=== PATIENT | male | born 1940 | race Caucasian/White ===

== ENCOUNTER 2022-07-12 19:39 | Emergency (ER) | payer MEDICARE ==
--- NOTE | 2022-07-12 21:04 | ED ---
General Adult HPI - General Chief complaint: Abdominal Pain Stated complaint: recheck Time Seen by Provider: 07/12/22 20:42 Source: patient, family (), RN notes reviewed Mode of arrival: ambulatory Limitations: no limitations - History of Present Illness Initial comments: Patient is an 82-year-old male presenting to the emergency room complaints of right upper quadrant pain and pain in the right lower rib region he reports that movement and deep inspiration makes the pain worse. He states that the pain has been ongoing for 5-6 days. He states that at the beginning of his symptoms he was having dry heaves without any vomiting. He denies any recent dry heaves. He does report occasional nausea but none at this time. He denies any left-sided abdominal pain, diarrhea, changes in stool consistency, unintentional weight changes, flank pain, hematuria, dysuria, urinary frequency or hesitation, fevers or chills. He reports chronic shortness of breath which she fills unchanged since symptoms started however his is concerned r egarding increased shortness of breath since symptoms began. He was evaluated by [facility] and on the neck advised him to report to the emergency room for further evaluation and treatment. His reports that they were concerned regarding a clot but did not divulge any further information. He denies any chest pain or as stated above changes in baseline dyspnea. He has a past medical history significant for A. fib, hypertension, hyperlipidemia, SC, COPD and previous cholecystectomy. He is on warfarin for his history of atrial fibrillation and reports that his last INR which is checked monthly by his barrel and receiver aligner was therapeutic. - Related Data Home Medications Medication Instructions Recorded Confirmed Aspirin EC [Ecotrin Low Dose] 81 mg PO DAILY 07/12/22 07/12/22 Atorvastatin [Lipitor] 20 mg PO DIRECTED 07/12/22 07/12/22 Cholecalciferol [Vitamin D3 (25 50 mcg PO DAILY 07/12/22 07/12/22 Mcg = 1000 Iu)] Digoxin [Lanoxin] 125 mcg PO DIRECTED 07/12/22 07/12/22 Metoprolol Tartrate [Lopressor] 50 mg PO DIRECTED 07/12/22 07/12/22 Omeprazole [PriLOSEC] 20 mg PO DIRECTED 07/12/22 07/12/22 Warfarin Sodium 1.25 mg PO MOWEFR@2100 07/12/22 07/12/22 Warfarin [Coumadin] 2.5 mg PO BART@2100 07/12/22 07/12/22 lisinopriL [Zestril] 10 mg PO DAILY 07/12/22 07/12/22 Previous Rx's Medication Instructions Recorded Levofloxacin [Levaquin] 500 mg PO DAILY 6 Days #6 tab 07/13/22 Allergies Allergy/AdvReac Type Severity Reaction Status Date / Time amoxicillin [From Augmentin] Allergy Unknown Verified 07/12/22 22:15 clavulanic acid Allergy Unknown Verified 07/12/22 22:15 [From Augmentin] Review of Systems ROS Statement: Those systems with pertinent positive or pertinent negative responses have been documented in the HPI. ROS Other: All systems not noted in ROS Statement are negative. Past Medical History Past Medical History: Atrial Fibrillation, COPD, Hyperlipidemia, Hypertension, Myocardial Infarction (SC) History of Any Multi-Drug Resistant Organisms: None Reported Past Surgical History: Cholecystectomy, Coronary Bypass/CABG, Heart Catheterization With Stent, Pacemaker Past Psychological History: No Psychological Hx Reported Smoking Status: Former smoker Past Alcohol Use History: None Reported Past Drug Use History: None Reported General Exam - General Exam Comments Initial Comments: GENERAL: No acute distress, well developed, well nourished. HEENT: Normocephalic, atraumatic. Pupils equal, round, reactive to light. Moist mucous membranes. LUNGS: No respiratory distress. Lung sounds diminished otherwise clear to auscultation, no adventitious sounds, no use of accessory muscles. HEART: Regular rate and rhythm systolic murmur without diastolic murmur, rub, or gallop. ABDOMEN: Normal bowel sounds. Soft, non-distended. Right upper quadrant tenderness. No rebound tenderness or guarding. BACK: Normal inspection. EXTREMITIES: Bilateral +1 lower extremity edema. No tenderness. Moves all extremities. NEUROLOGIC: Alert & oriented x 3. CN II-XII grossly intact. PSYCHIATRIC: Normal affect and behavior. DERMATOLOGIC: Skin intact, without rashes or lesions noted. Limitations: no limitations Course Vital Signs 07/12/22 19:48 Temperature 98.2 F Pulse Rate 88 Respiratory 18 Rate Blood Pressure 159/88 O2 Sat by Pulse 98 Oximetry Medical Decision Making - Medical Decision Making Was pt. sent in by a medical professional or institution (, PA, PERSONAL LINES APPRAISER, urgent care, hospital, or shelter...) When possible be specific @ -No Did you speak to anyone other than the patient for history (EMS, parent, family, police, friend...)? What history was obtained from this source @ -No Did you review nursing and triage notes (agree or disagree)? Why? @ -I reviewed and agree with nursing and triage notes Were old charts reviewed (outside hosp., previous admission, EMS record, old EKG, old radiological studies, urgent care reports/EKG's, shelter records)? Report findings @ -No old charts were reviewed Differential Diagnosis (chest pain, altered mental status, abdominal pain women, abdominal pain men, vaginal bleeding, weakness, fever, dyspnea, syncope, headache, dizziness, GI bleed, back pain, seizure, CVA, palpatations, mental health, musculoskeletal)? @ -Differential Abdominal Pain Men: Appendicitis, cholecystitis, diverticulosis, ischemic bowel, pancreatitis, hepatitis, UTI, gastroenteritis, AAA, incarcerated hernia, bowel obstruction, constipation, inflammatory bowel, hepatitis, peptic ulcer disease, splenic infarction, perforated viscus, testicular torsion, this is not meant to be an all-inclusive list EKG interpreted by me (3pts min.). @ -EKG demonstrates electronically paced rhythm with right bundle branch block, ventricular rate 85 bpm, UT interval 224 ms, QRS duration 129 ms, QT/QTC 350/392 ms, PRT axis -84, 95, 38 X-rays interpreted by me (1pt min.). @ -None done CT interpreted by me (1pt min.). @ -CT chest angio: No pulmonary emboli. Redemonstration of right middle lobe pneumonia and small right pleural effusion. CT abdomen and pelvis with contrast: Right middle lobe consolidation with small pleural effusion. No acute intra-abdominal process. No evidence of obstruction, bowel dilatation, or free air in the abdomen. U/S interpreted by me (1pt. min.). @ -None done What testing was considered but not performed or refused? (CT, X-rays, U/S, labs)? Why? @ -None What meds were considered but not given or refused? Why? @ -None Did you discuss the management of the patient with other professionals (professionals i.e. , PA, PERSONAL [employer]ES APPRAISER, lab, RT, psych nurse, social service director, prospecting driller, teacher, aoc director combat plans officer, case management specialist)? Give summary @ -No Was smoking cessation discussed for >3mins.? @ -No Was critical care preformed (if so, how long)? @ -No Were there social determinants of health that impacted care today? How? (Homelessness, low income, unemployed, alcoholism, drug addiction, transportation, low edu. Level, literacy, decrease access to med. care, detention, r ehab)? @ -No Was there de-escalation of care discussed even if they declined (Discuss DNR or withdrawal of care, Hospice)? DNR status @ -No What co-morbidities impacted this encounter? (DM, HTN, Smoking, COPD, CAD, Cancer, CVA, ARF, Chemo, Hep., AIDS, mental health diagnosis, sleep apnea, morbid obesity)? @ -Atrial fibrillation on warfarin Was patient admitted / discharged? Hospital course, mention meds given and route, prescriptions, significant lab abnormalities, going to OR and other pertinent info. @ -82-year-old male presenting to the emergency room for further evaluation of right upper quadrant/right lower rib pain ongoing for approximately 5 days with initial dry heaves no further episodes of dry heaves. Conflicting information regarding workup at urgent care by spouse. Will start workup for abdominal pain with CBC, CMP, amylase, like lipase, lactic acid, troponin, coags and urinalysis; in the setting of concern regarding clot per will also check d-dimer. Will await laboratory studies to order diagnostic imaging. No indication for medications at this time. CBC demonstrates low RBC 4.29 otherwise no abnormalities coags demonstrate subtherapeutic INR at 1.7 d-dimer elevated 1.66 CMP reveals BUN elevated at 30 sodium level 134, potassium normal, bilirubin slightly elevated 1.5, ALT slightly elevated 54, AST normal ,alk phosphate normal, troponin negative, amylase and lipase, normal urinalysis with moderate amount of blood causing contamination of results with +1 protein large leukocyte esterase urine RBCs and urine WBCs elevated with rare mucus and rare bacteria. Will proceed with CT angios chest in the setting of elevated d-dimer along with CT of chest and abdomen. CT abdomen and pelvis negative for acute abdominal process. CT angios negative for pulmonary emboli. CT findings consistent with right middle lobe pneumonia with small pleural effusion. In the setting of no leukocytosis, hypoxia or fevers patient is stable for discharge home on oral antibiotic therapy however very strict return parameters to the emergency room discussed at length with patient and spouse. Will give initial dose of oral antibiotic therapy of Levaquin. Given comorbidities and amoxicillin ALLERGY will utilize Levaquin to treat pneumonia. Patient educated regarding potential interaction with warfarin and advised to monitor for signs and symptoms of bleeding and repeat INR level upon completion of medication course. Encouraged cough and deep breathing exercises. Advise follow-up with primary care provider. Will discharge home on oral antibiotic therapy for treatment of right middle lobe pneumonia advising follow-up with primary care provider. Undiagnosed new problem with uncertain prognosis? @ -No Drug Therapy requiring intensive monitoring for toxicity (Heparin, Nitro, Insulin, Cardizem)? @ -No Were any procedures done? @ -No Diagnosis/symptom? @ -Right middle lobe pneumonia with small right pleural effusion Acute, or Chronic, or Acute on Chronic? @ -Acute Uncomplicated (without systemic symptoms) or Complicated (systemic symptoms)? @ -Uncomplicated Side effects of treatment? @ -No Exacerbation, Progression, or Severe Exacerbation? @ -No Poses a threat to life or bodily function? How? (Chest pain, USA, SC, pneumonia, PE, COPD, DKA, ARF, appy, cholecystitis, CVA, Diverticulitis, Homicidal, Suicidal, threat to staff... and all critical care pts) @ -No. Case discussed with Dr. Pillai. - Lab Data Result diagrams: 07/12/22 21:05 07/12/22 21:05 Lab Results 07/12/22 07/12/22 07/12/22 Range/Units 21:05 21:05 21:05 WBC 7.4 (3.8-10.6) k/uL RBC 4.29 L (4.30-5.90) m/uL Hgb 13.0 (13.0-17.5) gm/dL Hct 39.7 (39.0-53.0) % MCV 92.4 (80.0-100.0) fL MCH 30.3 (25.0-35.0) pg MCHC 32.8 (31.0-37.0) g/dL RDW 13.6 (11.5-15.5) % Plt Count 216 (150-450) k/uL MPV 9.2 Neutrophils % 68 % Lymphocytes % 17 % Monocytes % 9 % Eosinophils % 3 % Basophils % 0 % Neutrophils # 5.0 (1.3-7.7) k/uL Lymphocytes # 1.3 (1.0-4.8) k/uL Monocytes # 0.7 (0-1.0) k/uL Eosinophils # 0.2 (0-0.7) k/uL Basophils # 0.0 (0-0.2) k/uL PT 17.1 H (9.0-12.0) sec INR 1.7 H (<1.2) APTT 32.2 H (22.0-30.0) sec D-Dimer 1.66 H (<0.60) mg/L FEU Sodium (137-145) mmol/L Potassium (3.5-5.1) mmol/L Chloride (98-107) mmol/L Carbon Dioxide (22-30) mmol/L Anion Gap mmol/L BUN (9-20) mg/dL Creatinine (0.66-1.25) mg/dL Est GFR (CKD-EPI)AfAm (>60 ml/min/1.73 sqM) Est GFR (CKD-EPI)NonAf (>60 ml/min/1.73 sqM) Glucose (74-99) mg/dL Plasma Lactic Acid Jhon (0.7-2.0) mmol/L Calcium (8.4-10.2) mg/dL Total Bilirubin (0.2-1.3) mg/dL AST (17-59) U/L ALT (4-49) U/L Alkaline Phosphatase (38-126) U/L Troponin I (0.000-0.034) ng/mL Total Protein (6.3-8.2) g/dL Albumin (3.5-5.0) g/dL Amylase (30-110) U/L Lipase (23-300) U/L Urine Color Yellow Urine Appearance Cloudy (Clear) Urine pH 5.0 (5.0-8.0) Ur Specific [place] 1.020 (1.001-1.035) Urine Protein 1+ H (Negative) Urine Glucose (UA) Negative (Negative) Urine Ketones Negative (Negative) Urine Blood Moderate H (Negative) Urine Nitrite Negative (Negative) Urine Bilirubin Negative (Negative) Urine Urobilinogen 2.0 (<2.0) mg/dL Ur Leukocyte Esterase Large H (Negative) Urine RBC 10 H (0-5) /hpf Urine WBC 43 H (0-5) /hpf Ur Squamous Epith Cells 1 (0-4) /hpf Urine Bacteria Rare H (None) /hpf Urine Mucus Rare H (None) /hpf 07/12/22 07/12/22 07/12/22 Range/Units 21:05 21:05 21:05 WBC (3.8-10.6) k/uL RBC (4.30-5.90) m/uL Hgb (13.0-17.5) gm/dL Hct (39.0-53.0) % MCV (80.0-100.0) fL MCH (25.0-35.0) pg MCHC (31.0-37.0) g/dL RDW (11.5-15.5) % Plt Count (150-450) k/uL MPV Neutrophils % % Lymphocytes % % Monocytes % % Eosinophils % % Basophils % % Neutrophils # (1.3-7.7) k/uL Lymphocytes # (1.0-4.8) k/uL Monocytes # (0-1.0) k/uL Eosinophils # (0-0.7) k/uL Basophils # (0-0.2) k/uL PT (9.0-12.0) sec INR (<1.2) APTT (22.0-30.0) sec D-Dimer (<0.60) mg/L FEU Sodium 134 L (137-145) mmol/L Potassium 4.4 (3.5-5.1) mmol/L Chloride 101 (98-107) mmol/L Carbon Dioxide 30 (22-30) mmol/L Anion Gap 3 mmol/L BUN 30 H (9-20) mg/dL Creatinine 0.72 (0.66-1.25) mg/dL Est GFR (CKD-EPI)AfAm >90 (>60 ml/min/1.73 sqM) Est GFR (CKD-EPI)NonAf 86 (>60 ml/min/1.73 sqM) Glucose 88 (74-99) mg/dL Plasma Lactic Acid Jhon 0.7 (0.7-2.0) mmol/L Calcium 8.3 L (8.4-10.2) mg/dL Total Bilirubin 1.5 H (0.2-1.3) mg/dL AST 51 (17-59) U/L ALT 54 H (4-49) U/L Alkaline Phosphatase 84 (38-126) U/L Troponin I 0.016 (0.000-0.034) ng/mL Total Protein 5.9 L (6.3-8.2) g/dL Albumin 3.2 L (3.5-5.0) g/dL Amylase 66 (30-110) U/L Lipase 285 (23-300) U/L Urine Color Urine Appearance (Clear) Urine pH (5.0-8.0) Ur Specific [place] (1.001-1.035) Urine Protein (Negative) Urine Glucose (UA) (Negative) Urine Ketones (Negative) Urine Blood (Negative) Urine Nitrite (Negative) Urine Bilirubin (Negative) Urine Urobilinogen (<2.0) mg/dL Ur Leukocyte Esterase (Negative) Urine RBC (0-5) /hpf Urine WBC (0-5) /hpf Ur Squamous Epith Cells (0-4) /hpf Urine Bacteria (None) /hpf Urine Mucus (None) /hpf Disposition Clinical Impression: Right middle lobe pneumonia, Pleural effusion, right Disposition: HOME SELF-CARE Condition: Stable Instructions (If sedation given, give patient instructions): Community Acquired Pneumonia (ED) Additional Instructions: Complete course of antibiotic therapy as prescribed. Cough and deep breathing exercises encouraged. Please follow-up with your primary care provider. Please have your INR for your Coumadin level rechecked after completion of antibiotic therapy. Please return to the Emergency Department if symptoms worsen or any other concerns. Prescriptions: Levofloxacin [Levaquin] 500 mg PO DAILY 6 Days #6 tab Is patient prescribed a controlled substance at d/c from ED?: No Referrals: Henry Oliver DO [Doctor of Osteopathic Medicine] - 1-2 days Time of Disposition: 00:22
[2022-07-12 21:35] VITALS: BP 159/88; PULSE 88; RESP 18; TEMP 98.2
[2022-07-12 21:35] LABS: Basophils % (A) 0 %; Eosinophils # (A) 0.2 k/uL (0-0.7); Eosinophils % (A) 3 %; HCT 39.7 % (39.0-53.0); Lymphocytes # (A) 1.3 k/uL (1.0-4.8); Lymphocytes % (A) 17 %; MCH 30.3 pg (25.0-35.0); MCHC 32.8 g/dL (31.0-37.0); MCV 92.4 fL (80.0-100.0); Mean Platelet Volume 9.2; Monocytes # (A) 0.7 k/uL (0-1.0); Monocytes % (A) 9 %; Neutrophils % (A) 68 %; Platelet Count 216 k/uL (150-450); RBC 4.29 m/uL (4.30-5.90); RDW 13.6 % (11.5-15.5); WBC 7.4 k/uL (3.8-10.6)
[2022-07-12 21:48] LABS: INR 1.7 (<1.2); Partial Thromboplastin Time 32.2 sec (22.0-30.0); Prothrombin Time 17.1 sec (9.0-12.0)
[2022-07-12 21:57] LABS: Appearance,Urine Cloudy (Clear); Bacteria,Urine Rare /hpf; Bilirubin,Urine Negative (Negative); Blood,Urine Moderate (Negative); Color,Urine Yellow; Glucose,Urine (UA) Negative (Negative); Ketones,Urine Negative (Negative); Leukocyte Esterase,Urine Large (Negative); Mucus,Urine Rare /hpf; Nitrite,Urine Negative (Negative); Protein,Urine 1+ (Negative); RBC,Urine 10 /hpf (0-5); Squamous Epithelial Cell,Urine 1 /hpf (0-4); WBC,Urine 43 /hpf (0-5)
[2022-07-12 22:00] LABS: ALT 54 U/L (4-49); AST 51 U/L (17-59); African American GFR (CKD) >90 (>60 ml/min/1.73 sqM); Albumin 3.2 g/dL (3.5-5.0); Alkaline Phosphatase 84 U/L (38-126); Amylase 66 U/L (30-110); Anion Gap 3 mmol/L; Blood Urea Nitrogen 30 mg/dL (9-20); Calcium 8.3 mg/dL (8.4-10.2); Carbon Dioxide 30 mmol/L (22-30); Chloride 101 mmol/L (98-107); Glucose 88 mg/dL (74-99); Lipase 285 U/L (23-300); Non-African American GFR(CKD) 86 (>60 ml/min/1.73 sqM); Potassium 4.4 mmol/L (3.5-5.1); Sodium 134 mmol/L (137-145); Total Bilirubin 1.5 mg/dL (0.2-1.3); Total Protein 5.9 g/dL (6.3-8.2)
--- NOTE | 2022-07-13 | CT ---
EXAM: CT Angiography Chest With Intravenous Contrast CLINICAL HISTORY: CT Reason: RUQ pain, dyspnea elevated d dimer TECHNIQUE: Axial computed tomographic angiography images of the chest with intravenous contrast. CTDI is 21 mGy and DLP is 282.8 mGy-cm. This CT exam was performed using one or more of the following dose reduction techniques: automated exposure control, adjustment of the mA and/or kV according to patient size, and/or use of iterative reconstruction technique. MIP reconstructed images were created and reviewed. COMPARISON: No relevant prior studies available. FINDINGS: Pulmonary arteries: The pulmonary arterial tree is well opacified with contrast. No pulmonary embolism is identified. Aorta: The thoracic aorta is mildly calcified but nondilated. There is no aneurysm or dissection. 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 Lungs: There is an approximately 8 cm area of consolidation in the right middle lobe as well as scattered patchy infiltrates in the right upper and lower lobes consistent with pneumonia. There are mild emphysematous changes in the left lung. Pleural space: There is a small right pleural effusion measuring up to 2.5 cm. No pneumothorax. Heart: Previous CABG. There is severe coronary calcification and moderate cardiomegaly with pacing device in place. No pericardial effusion. No evidence of RV dysfunction. Bones/joints: There is ankylosis of the thoracic spine. No acute fracture is identified. No dislocation. Soft tissues: Unremarkable. Lymph nodes: Unremarkable. No enlarged lymph nodes. IMPRESSION: 1. There is an approximately 8 cm area of consolidation in the right middle lobe as well as scattered patchy infiltrates in the right upper and lower lobes consistent with pneumonia. Mild underlying emphysema. 2. The pulmonary arterial tree is well opacified with contrast. No pulmonary embolism is identified. 3. The thoracic aorta is mildly calcified but nondilated. There is no aneurysm or dissection. 4. There is a small right pleural effusion measuring up to 2.5 cm.
--- NOTE | 2022-07-13 00:02 | CT ---
EXAM: CT Abdomen and Pelvis With Intravenous Contrast CLINICAL HISTORY: CT Reason: RUQ pain TECHNIQUE: Axial computed tomography images of the abdomen and pelvis with intravenous contrast. CTDI is 16 mGy and DLP is 726.3 mGy-cm. This CT exam was performed using one or more of the following dose reduction techniques: automated exposure control, adjustment of the mA and/or kV according to patient size, and/or use of iterative reconstruction technique. COMPARISON: No relevant prior studies available. FINDINGS: Lung bases: Right middle lobe pneumonia and small right pleural effusion. ABDOMEN: Liver: Unremarkable. No mass. Gallbladder and bile ducts: Abuse cholecystectomy. No biliary duct dilation is seen. Pancreas: Unremarkable. No mass. No ductal dilation. Spleen: Unremarkable. No splenomegaly. Adrenals: Unremarkable. No mass. Kidneys and ureters: Unremarkable. No solid mass. No hydronephrosis. Stomach and bowel: Unremarkable. No obstruction. No mucosal thickening. PELVIS: Appendix: The appendix is normal. Bowel loops are nondilated. No acute focal inflammatory process is seen involving the bowel. There is a trace amount of free fluid in the pelvis. Bladder: Unremarkable. No mass. Reproductive: Partial visualization of large hydrocele measuring approximate 8.5 cm. ABDOMEN and PELVIS: Intraperitoneal space: See above. Bones/joints: Mild to moderate degenerative changes throughout the spine. No acute fracture or subluxation is seen. Soft tissues: Unremarkable. Vasculature: Severe calcification and mild ectasia of the inferior abdominal aorta measuring up to 2.6 cm. No abdominal aortic aneurysm. Lymph nodes: Unremarkable. No enlarged lymph nodes. IMPRESSION: 1. Right middle lobe pneumonia and small right pleural effusion. 2. The appendix is normal. Bowel loops are nondilated. No acute focal inflammatory process is seen involving the bowel. There is a trace amount of free fluid in the pelvis.
[2022-07-13] MEDS ORDERED: LEVOFLOXACIN 500 MG TAB PO STA (00:19)
== END 2022-07-13 00:42 | disposition home or self-care (01) ==
LOC: EC 19:39 → SUPCPDRO 19:39 → EC 07-13 00:42
DX: J18.9 Pneumonia, unspecified organism (principal); J90 Pleural effusion, not elsewhere classified; I10 Essential (primary) hypertension; I48.91 Unspecified atrial fibrillation; I25.2 Old myocardial infarction; J44.9 Chronic obstructive pulmonary disease, unspecified; E78.5 Hyperlipidemia, unspecified; Z79.01 Long term (current) use of anticoagulants; Z79.82 Long term (current) use of aspirin; Z79.899 Other long term (current) drug therapy; Z88.0 Allergy status to penicillin; Z88.1 Allergy status to other antibiotic agents; Z90.49 Acquired absence of other specified parts of digestive tract; Z95.5 Presence of coronary angioplasty implant and graft; Z87.891 Personal history of nicotine dependence
CPT/HCPCS: 36415; 93005; 85379; 80053; 82150; 83605; 83690; 84484; 85025; 85610; 85730; 81001; 71275; 74177; 99284; Q9967

== ENCOUNTER 2023-06-26 08:52 | Day surgery (SDC) | payer MEDICARE ==
[2023-06-24 09:41] VITALS: BMI 20.3
[~2023-06-26 08:52] MED LIST: ceFAZolin 1 GM in SODIUM CHLORIDE 0.9% IRRIG BTL 250 ML IRRIGATION PRN
[2023-06-26] MEDS: SODIUM CHLORIDE 0.9% 1,000 ML IV SCH (09:21)
[2023-06-26] MEDS ORDERED: LIDOCAINE 1% INJ 10MG/ML (20 ML MDV) ONE (09:23)
[2023-06-26] MEDS ORDERED: fentaNYL (PF) 50 MCG/ML 2 ML AMP ONE (09:23)
[2023-06-26 09:34] LABS: INR 1.5 (<1.2); Prothrombin Time 15.1 sec (10.0-12.5)
[2023-06-26 09:42] VITALS: RESP 18; TEMP 97.9
[2023-06-26] MEDS: fentaNYL (PF) 50 MCG/1 ML VIAL IVP ONE ×2 (10:52→10:59)
[2023-06-26] MEDS: MIDAZOLAM 2 MG/2 ML VIAL IVP ONE ×2 (10:52→10:57)
[2023-06-26] MEDS: ceFAZolin 1,000 MG VIAL IVPB ONE (10:54)
[2023-06-26] MEDS: LIDOCAINE 2% (PF) 20 MG/ML 5 ML VIAL SQ ONE (10:56)
--- NOTE | 2023-06-26 11:29 | P.PCN ---
Description of Procedure: CARDIOLOGY PROCEDURE NOTE Land Reclamation Specialist: Dr. Tim Pollard Procedure performed: Dual chamber permanent pacemaker generator change Site: Left subclavian Indications: Sick Sinus Syndrome, CASTILLO Complications: None Blood Loss: Minimal Description of Procedure: After the risks, benefits, and alternatives of the above-mentioned procedure was explained in detail with the patient, informed consent was obtained. The patient was taken to the cardiac catheterization suite where the left subclavian area was sterily prepped and draped in the usual fashion. Patient was given IV Versed and fentanyl for sedation. The skin over the existing pulse generator was infiltrated with lidocaine. An incision was made in the skin and was deepened until the pectoral fascia was exposed. Hemostasis was obtained. The existing pulse generator was pulled out of the pocket. The leads were disconnected and were checked for thresholds. The existing leads were then inserted into the appropriate position into the new generator. They were then secured with the setscrew provided. The leads and generator were inserted into the pocket with the leads posterior. The subcutaneous tissue was approximated utilizing #2.0 and 3.0 vicryl in an interrupted stitch fashion. The dermal layer was approximated utilizing #4.0 vicryl. The area was cleansed with sterile saline and dried. A sterile 4x4 dressing was applied and the patient was transferred to the post catheterization holding area in stable and satisfactory condition. The patient tolerated the procedure well. Generator Data Digital Art Director: [employer] Brand: [id number] [place] XT DR [facility] Model #: W1DR01 Serial#: [id number] Right Atrial Bipolar Lead Data: Type: Active fixation lead Digital Art Director: [employer] Model#: 5076 Serial Number: [id number] Right Ventricular Bipolar Lead Data: Type: Active fixation lead Digital Art Director: [employer] Model #: 5076 Serial #: [id number] Stimulation Thresholds: Right atrial bipolar lead pacing and sensing thresholds Voltage: 0.75V Impedance: 456 ohms P-wave sensin.5 mV Right Ventricular bipolar lead pacing and sensing thresholds Pulse Width: 0.4ms Voltage: 1.0 volts Impedance: 475 ohms R-wave sensin mV Parameter Setting: Pacing mode is AAIR<=>DDDR Lower rate 60 bpm Upper rate 120 bpm Impressions: 1. Successful generator change of a dual chamber permanent pacemaker in the left pectoral site. Plan: 1. Routine post procedure care will be instituted as well as outpatient follow- up surveillance.
[2023-06-26] MEDS ORDERED: ACETAMINOPHEN TAB 325 MG TAB PO PRN (11:41)
[2023-06-26 13:25] VITALS: PULSE 63
--- NOTE | 2023-06-26 13:25 | XR ---
EXAMINATION TYPE: XR chest 1V portable DATE OF EXAM: 06/26/2023 COMPARISON: 08/06/2022, 07/24/2022 HISTORY: Lead placement check TECHNIQUE: Single frontal view of the chest is obtained. FINDINGS: There is no focal air space opacity, pleural effusion, or pneumothorax seen. The cardiac silhouette size is within normal limits. The osseous structures are intact. Sternotomy changes are seen. Atherosclerotic change aorta. Dual lead pacemaker with the proximal lead overlying the right at rium and distal lead overlying the right ventricle. Diffuse osteopenia arthropathy of the shoulders. Underlying COPD. IMPRESSION: 1. Dual lead cardiac device appears in good position with no evidence of pneumothorax.
[2023-06-26 14:02] VITALS: BP 114/58
== END 2023-06-26 14:15 | disposition home or self-care (01) ==
LOC: CATHEP 08:52
PROVIDERS: ATTEND Internal Medicine
DX: I48.0 Paroxysmal atrial fibrillation (principal); I49.5 Sick sinus syndrome; I27.20 Pulmonary hypertension, unspecified; F32.A Depression, unspecified; I07.1 Rheumatic tricuspid insufficiency; F17.210 Nicotine dependence, cigarettes, uncomplicated; Z82.49 Family history of ischemic heart disease and other diseases of the circulatory system; Z88.0 Allergy status to penicillin; Z88.1 Allergy status to other antibiotic agents; Z88.8 Allergy status to other drugs, medicaments and biological substances; Z79.01 Long term (current) use of anticoagulants; Z79.82 Long term (current) use of aspirin; Z79.899 Other long term (current) drug therapy
CPT/HCPCS: 33228; 85610; 71045; C1785; J2250; J0690; J2001; J3010